=== PATIENT | female | born 1995 | race Caucasian/White ===

== ENCOUNTER → 2019-06-16 | Outpatient (CLI) | payer BC ==
--- NOTE | 2019-06-27 18:28 | P.PN ---
Progress Note - Text Progress Note Date: 06/27/19 This is a report on the seven-day event monitor starting from June 16. Baseline rhythm showed sinus with normal AK interval and QRS duration. Patient had episodes of sinus tachycardia with rates up to 180 episodes of sinus bradycardia with minimal rates of 57. Occasional APCs. Patient complained of being dizzy and racing of the heart, shortness of breath, chest pressure on several occasions. These symptoms did not correlate with any significant cardiac events. Final impression: #1. Baseline rhythm is sinus. #2. Episodes of sinus tachycardia and sinus bradycardia. #3. Several symptoms of dizziness, lightheadedness and racing chest tightness, not correlating with any cardiac e vents.
--- NOTE | 2019-06-30 13:53 | EM ---
This is a report on the seven-day event monitor starting from June 16. Baseline rhythm showed sinus with normal [place] interval and QRS duration. Patient had episodes of sinus tachycardia with rates up to 180 episodes of sinus bradycardia with minimal rates of 57. Occasional APCs. Patient complained of being dizzy and racing of the heart, shortness of breath, chest pressure on several occasions. These symptoms did not correlate with any significant cardiac events. Final impression: #1. Baseline rhythm is sinus. #2. Episodes of sinus tachycardia and sinus bradycardia. #3. Several symptoms of dizziness, lightheadedness and racing chest tightness, not correlating with any cardiac events. MTDD
== END | disposition home or self-care (01) ==
LOC: RADECHMAIN 11:59
PROVIDERS: ATTEND Family Medicine
DX: R00.0 Tachycardia, unspecified (principal); R00.1 Bradycardia, unspecified; R42 Dizziness and giddiness; R07.89 Other chest pain; F41.8 Other specified anxiety disorders
CPT/HCPCS: 93270

== ENCOUNTER 2019-07-22 10:31 | Day surgery (SDC) | payer BC ==
[2019-07-18 15:15] VITALS: BMI 21.2
[~2019-07-22 10:31] MED LIST: SODIUM CHLORIDE 0.9% 1,000 ML IV SCH
[2019-07-22 11:11] VITALS: RESP 16; TEMP 98.8
[2019-07-22 14:26] VITALS: BP 106/72; PULSE 65
--- NOTE | 2019-07-22 19:14 | P.PCN ---
Preoperative Diagnosis: Diagnosis recurrent presyncope Twelve-lead ECG shows sinus rhythm normal OR narrow QRS epsilon waves no ST segment abnormalities other than early repolarization abnormality of less than 1 mm no delta waves normal QT interval Tilt table test per protocol Baseline blood pressure 117/64 mmHg, Baseline heart rate 64 beats a minute Patient was tilted upright at an angle of 70 per protocol. Within 12 minutes her heart rate increased 222 beats a minute 4 by sudden drop in blood pressure. Lowest blood pressure recorded was 60/30 mmHg. She became pre-syncopal, briefly This reproduced her clinical symptoms Upon assuming supine position, heart rate and blood pressure normalized and symptoms improved Impression Normal twelve-lead ECG Neurocardiogenic syncope
== END 2019-07-22 13:15 | disposition home or self-care (01) ==
LOC: CATHEP 10:31
PROVIDERS: ATTEND Internal Medicine Clinical Cardiac Electrophysiology
DX: R55 Syncope and collapse (principal)
CPT/HCPCS: 93660

== ENCOUNTER → 2019-11-25 | Outpatient (CLI) | payer BC ==
--- NOTE | 2019-12-30 11:50 | EM ---
EVENT MONITOR INDICATION: Palpitations and orthostatic hypotension. I reviewed the provided event monitor strips. Patient was primarily in sinus rhythm with episodes of sinus tachycardia. The maximum heart rate was around 160 beats per minute. There were frequent PACs and a 4-beat run of atrial tachycardia noted. There were no pauses of more than 2 seconds. CONCLUSIONS: This event monitor shows sinus rhythm with sinus tachycardia and paroxysmal atrial tachycardia. MMODL / IJN: [id number] /
== END | disposition home or self-care (01) ==
LOC: RADECHMAIN 12:24
PROVIDERS: ATTEND Family Medicine
DX: I95.1 Orthostatic hypotension (principal); I47.1 Supraventricular tachycardia
CPT/HCPCS: 93270

== ENCOUNTER → 2020-04-08 | Outpatient (CLI) | payer BC ==
[2020-04-08 15:17] LABS: Basophils % (A) 0 %; Eosinophils % (A) 1 %; HGB 13.8 gm/dL (11.4-16.0); Lymphocytes # (A) 1.9 k/uL (1.0-4.8); Lymphocytes % (A) 44 %; MCH 29.4 pg (25.0-35.0); MCHC 32.2 g/dL (31.0-37.0); MCV 91.4 fL (80.0-100.0); Mean Platelet Volume 8.3; Monocytes # (A) 0.2 k/uL (0-1.0); Monocytes % (A) 4 %; Neutrophils # (A) 2.1 k/uL (1.3-7.7); Neutrophils % (A) 48 %; Platelet Count 237 k/uL (150-450); WBC 4.4 k/uL (3.8-10.6)
[2020-04-08 18:38] LABS: Anti-Smith Ab Interp NEGATIVE (NEGATIVE)
[2020-04-08 18:39] LABS: DNA Double-Stranded Indetermin (NEGATIVE); Scleroderma SC-70 Ab <0.2 AI
[2020-04-08 18:52] LABS: % Iron Saturation 30.52 (12.00-45.00); African American GFR (CKD) 105.2 (60.0-200.0); Albumin 4.7 g/dL (3.80-4.90); Albumin/Globulin Ratio 1.88 (1.60-3.17); Anion Gap 6.6 mmol/L (4.00-12.00); BUN/Creat Ratio 14.44 Ratio (12.00-20.00); Carbon Dioxide 24.4 mmol/L (21.6-31.8); Globulin 2.5 g/dL (1.6-3.3); Non-African American GFR(CKD) 90.8 (60.0-200.0); Potassium 4.1 mmol/L (3.5-5.5); Total Bilirubin 0.4 mg/dL (0.2-1.2); Total Protein 7.2 g/dL (6.2-8.2)
[2020-04-08 19:10] LABS: Folate, Serum 20.4 ng/mL
[2020-04-08 20:39] LABS: Hepatitis B Surface AB- Quant 3.5 mIU/mL; Hepatitis B Surface Antibody Non-Reactive (Non-Reactive); Hepatitis B Surface Antigen Non-Reactive (Non-Reactive); Hepatitis C IgG Antibody Non-Reactive (Non-Reactive)
== END | disposition home or self-care (01) ==
LOC: LABWHC1 14:13
PROVIDERS: ATTEND Social Worker Clinical
DX: R76.8 Other specified abnormal immunological findings in serum (principal)
CPT/HCPCS: 36415; 80053; 82306; 82607; 82746; 83540; 83550; 85025; 86160; 86225; 86235; 86704; 86706; 86803; 87340

== ENCOUNTER 2020-07-08 20:22 | Emergency (ER) | payer BC ==
[2020-07-08 20:27] VITALS: BP 94/63; PULSE 84; RESP 16; TEMP 97.7
[2020-07-08] MEDS ORDERED: ACETAMINOPHEN TAB 500 MG TAB PO STA (20:39)
[2020-07-08] MEDS ORDERED: LIDOCAINE 1% INJ 10MG/ML (20 ML MDV) SQ ONE (20:40)
--- NOTE | 2020-07-08 21:09 | ED ---
Skin/Abscess/FB HPI - General Chief complaint: Skin/Abscess/Foreign Body Stated complaint: R Hand Lac Time Seen by Provider: 07/08/20 20:32 Source: patient Mode of arrival: ambulatory Limitations: no limitations - History of Present Illness Initial comments: Patient is a 24-year-old female presenting to the emergency department with a chief complaint of laceration to the hand. Patient states this occurred about one hour prior to her level when she was carving a pumpkin and accidentally slipped her skin with the knife. Patient reports the laceration is between the first and second digits of the right hand. Patient reports that she is able to still fully move her thumb but does have a small region of numbness on the pad of the thumb. She reports her tetanus status is up-to-date. Reports there was some bleeding initially which has mostly resolved. States the pain is exacerbated with any pressure to the lacerated region. - Related Data Home Medications Medication Instructions Recorded Confirmed Birthcontol Pill 1 tab PO DAILY 10/17/14 10/17/14 Escitalopram [Lexapro] 20 mg PO DAILY 07/18/19 07/22/19 Allergies Allergy/AdvReac Type Severity Reaction Status Date / Time citalopram Allergy Rash/Hives Verified 07/08/20 20:28 codeine AdvReac Nausea & Verified 07/08/20 20:28 Vomiting Review of Systems ROS Statement: Those systems with pertinent positive or pertinent negative responses have been documented in the HPI. ROS Other: All systems not noted in ROS Statement are negative. Past Medical History Additional Past Medical History / Comment(s): see Dr Sam's H&P,multiple fractures due to competative cheer History of Any Multi-Drug Resistant Organisms: None Reported Past Surgical History: Adenoidectomy, Tonsillectomy Past Anesthesia/Blood Transfusion Reactions: No Reported Reaction Additional Past Anesthesia/Blood Transfusion Reaction / Comment(s): no hx blood transfusion Past Psychological History: Anxiety, PTSD Smoking Status: Never smoker Past Alcohol Use History: None Reported Past Drug Use History: Marijuana - Past Family History Mother Family Medical History: No Reported History General Exam Limitations: no limitations General appearance: alert, in no apparent distress Head exam: Present: atraumatic, normocephalic, normal inspection Eye exam: Present: normal appearance, PERRL, EOMI. Absent: scleral icterus, conjunctival injection, nystagmus Pupils: Present: normal accommodation ENT exam: Present: normal exam, normal oropharynx, mucous membranes moist, TM's normal bilaterally, normal external ear exam Neck exam: Present: normal inspection, full ROM. Absent: tenderness Respiratory exam: Present: normal lung sounds bilaterally. Absent: respiratory distress, wheezes, rales Cardiovascular Exam: Present: regular rate, normal rhythm, normal heart sounds Extremities exam: Present: full ROM (Full range of motion in the right thumb and second digit.), tenderness (Tenderness laceration site.), normal capillary refill (Normal capillary refill in all of the fingers of the right hand.), other (+2 ulnar and radial pulses bilaterally.). Absent: normal inspection (Laceration in the webbing between first and second digit of her right hand. Laceration is about 5 cm in length. Not able to visualize any muscles in the hand.), pedal edema, joint swelling, calf tenderness Back exam: Present: normal inspection, full ROM. Absent: tenderness, CVA tenderness (R), CVA tenderness (L) Neurological exam: Present: alert, oriented X3 Psychiatric exam: Present: normal affect, normal mood Skin exam: Present: warm, dry, intact, normal color Course Vital Signs 07/08/20 20:25 Temperature 97.7 F Pulse Rate 84 Respiratory 16 Rate Blood Pressure 94/63 O2 Sat by Pulse 100 Oximetry Procedures - Laceration Laceration #1 Consent Obtained: verbal consent Indication: laceration Site: hand Size (cm): 5 Description: linear, clean Depth: simple, single layer Sedation/Analgesia: none Anesthetic Used: lidocaine 1% Anesthesia Technique: local infiltration Amount (mls): 5 Pre-repair: irrigated extensively, deep structures intact Type of Sutures: nylon Size of Sutures: 4-0 Number of Sutures: 7 Technique: simple, interrupted Patient Tolerated Procedure: well, no complications Medical Decision Making - Medical Decision Making patient is a 24-year-old female presenting to emergency Department with a chief complaint of laceration. On physical examination, patient has a 5 cm laceration in the webbing between first and second digit of right hand. She did have some decreased sensation in a small region measuring approximately 1 cm on the finger pad of the thumb. She otherwise has normal capillary refill of the thumb and second digit. She also has full range of motion in those fingers as well. Laceration site was thoroughly irrigated and repaired with 7 sutures. Patient tolerated procedure well. Return parameters were discussed and she was advised to return in 10 days for suture removal. I also advised to follow-up with . Tetanus was up-to-date. Case discussed with physician. Disposition Clinical Impression: Laceration Disposition: HOME SELF-CARE Condition: Stable Instructions (If sedation given, give patient instructions): Care For Your Stitches (DC), Laceration (DC) Additional Instructions: Follow-up with Please return to the emergency room in 8-10 days to have sutures removed. Please watch for any signs of infection which may include increased pain, swelling, redness, fever or chills. Please return to emergency room for any signs of infection do occur. Please use clean soap and water over the area to prevent scabbing over your stitches. Please leave wound covered for the first 24-48 hours and then leave wound open to air. Please return to the emergency room for any other concerns. Is patient prescribed a controlled substance at d/c from ED?: No Referrals: Annette Dale III, MD [Primary Care Provider] - 1-2 days Torsten Person DO [Doctor of Osteopathic Medicine] - 1-2 days Time of Disposition: 21:09
[2020-07-08] MEDS ORDERED: NEOMYCIN-BACITRACIN-POLY OINT 14 GM TUBE TOPICAL ONE (21:15)
== END 2020-07-08 21:23 | disposition home or self-care (01) ==
LOC: EC 20:22
DX: S61.411A Laceration without foreign body of right hand, initial encounter (principal); Z88.5 Allergy status to narcotic agent; Z88.8 Allergy status to other drugs, medicaments and biological substances; W26.0XXA Contact with knife, initial encounter
CPT/HCPCS: 99282; 12002; J2001

== ENCOUNTER 2020-08-19 05:33 | Emergency (ER) | payer BC ==
[2020-08-19 05:40] VITALS: RESP 18; TEMP 98.9
[2020-08-19 06:02] LABS: Appearance,Urine Cloudy (Clear); Bacteria,Urine Rare /hpf; Bilirubin,Urine Negative (Negative); Blood,Urine Small (Negative); Budding Yeast,Urine Occasional /hpf; Color,Urine Yellow; Glucose,Urine (UA) Negative (Negative); Ketones,Urine Negative (Negative); Leukocyte Esterase,Urine Large (Negative); Mucus,Urine Many /hpf; Nitrite,Urine Negative (Negative); Protein,Urine 1+ (Negative); RBC,Urine 35 /hpf (0-5); Squamous Epithelial Cell,Urine 2 /hpf (0-4); Urobilinogen,Urine <2.0 mg/dL (<2.0); WBC,Urine 129 /hpf (0-5)
[2020-08-19] MEDS ORDERED: KETOROLAC 15 MG/ML 1 ML VIAL IVP STA (06:19)
--- NOTE | 2020-08-19 06:19 | ED ---
Female Urogenital HPI - General Chief complaint: Urogenital Stated complaint: Back Pain Time Seen by Provider: 08/19/20 06:03 Source: patient Mode of arrival: ambulatory - History of Present Illness Initial comments: 25yo female presenting for low back pain. Patient states that she has had back pain and some lower midline tenderness for the past 2-3 days. On first day she states she had some right sided pain, that went away--two hours ago the patient states that experiences sharp left sided pain. Pt was concerned of kidney stone or bladder infection and presented to the ER. Pt denies . Denies immunocompromise, no chronic steroids/immune modulators. Patient denies fevers, chills or general malaise. Pt denies additional complaints. Upon arrival she is pleasant and nontoxic in appearance. - Related Data Home Medications Medication Instructions Recorded Confirmed Escitalopram [Lexapro] 20 mg PO DAILY 07/18/19 08/19/20 ALPRAZolam [Xanax] 0.25 mg PO DAILY PRN 08/19/20 08/19/20 Butalb/APAP/Caff 50-325-40Mg 1 tab PO Q4H PRN 08/19/20 08/19/20 [Fioricet 50-325-40] Kariva 1 tab PO DAILY 08/19/20 08/19/20 Ondansetron Odt [Zofran Odt] 4 mg PO Q4H PRN 08/19/20 08/19/20 Previous Rx's Medication Instructions Recorded Cephalexin [Keflex] 500 mg PO Q6HR 5 Days #20 cap 08/19/20 Allergies Allergy/AdvReac Type Severity Reaction Status Date / Time citalopram Allergy Rash/Hives Verified 08/19/20 07:01 codeine AdvReac Nausea & Verified 08/19/20 07:01 Vomiting Review of Systems ROS Statement: Those systems with pertinent positive or pertinent negative responses have been documented in the HPI. ROS Other: All systems not noted in ROS Statement are negative. Past Medical History Additional Past Medical History / Comment(s): see Dr Sam's H&P,multiple fractures due to competative cheer History of Any Multi-Drug Resistant Organisms: None Reported Past Surgical History: Adenoidectomy, Tonsillectomy Past Anesthesia/Blood Transfusion Reactions: No Reported Reaction Additional Past Anesthesia/Blood Transfusion Reaction / Comment(s): no hx blood transfusion Past Psychological History: Anxiety, PTSD Smoking Status: Never smoker Past Alcohol Use History: None Reported Past Drug Use History: Marijuana - Past Family History Mother Family Medical History: No Reported History General Exam - General Exam Comments Initial Comments: General: The patient is awake and alert, in no distress Eye: +3 mm pupils are equal, round and reactive to light, extra-ocular movements are intact. No nystagmus. There is normal conjunctiva bilaterally. No signs of icterus. Ears, nose, mouth and throat: There are moist mucous membranes and no oral lesions. Gastrointestinal: Soft, non-distended, non-tender abdomen without masses or organomegaly noted. There is no rebound or guarding present. Musculoskeletal: Normal ROM, no tenderness. Strength 5/5. Sensation intact. Radial pulses equal bilaterally 2+. Neurological: A&O x 3. CN II-XII intact grossly, There are no obvious motor or sensory deficits. Coordination appears grossly intact. Speech is normal. Skin: Skin is warm and dry and no rashes or lesions are noted. Psychiatric: Cooperative, appropriate mood & affect, normal judgment. Course Vital Signs 08/19/20 08/19/20 05:34 07:54 Temperature 98.9 F Pulse Rate 72 67 Respiratory 18 18 Rate Blood Pressure 140/91 134/86 O2 Sat by Pulse 99 100 Oximetry Medical Decision Making - Medical Decision Making labs stable. afebrile. suprapubic tenderness. low back pain b/l. changes sides. CT (-) stone. urine consistent with infection. culture pending. pt given rocephin. initiated on oral antibiotics. is to f/u with pcp adn return for worsenign symptoms. dr. hatfield agreeable to care plan and discharge. - Lab Data Result diagrams: 08/19/20 07:30 08/19/20 07:30 Lab Results 08/19/20 08/19/20 08/19/20 Range/Units 05:39 05:41 07:30 WBC 6.4 (3.8-10.6) k/uL RBC 3.88 (3.80-5.40) m/uL Hgb 12.1 (11.4-16.0) gm/dL Hct 35.4 (34.0-46.0) % MCV 91.1 (80.0-100.0) fL MCH 31.2 (25.0-35.0) pg MCHC 34.2 (31.0-37.0) g/dL RDW 11.9 (11.5-15.5) % Plt Count 189 (150-450) k/uL MPV 8.0 Neutrophils % 54 % Lymphocytes % 34 % Monocytes % 7 % Eosinophils % 1 % Basophils % 1 % Neutrophils # 3.5 (1.3-7.7) k/uL Lymphocytes # 2.2 (1.0-4.8) k/uL Monocytes # 0.5 (0-1.0) k/uL Eosinophils # 0.1 (0-0.7) k/uL Basophils # 0.0 (0-0.2) k/uL Sodium (137-145) mmol/L Potassium (3.5-5.1) mmol/L Chloride (98-107) mmol/L Carbon Dioxide (22-30) mmol/L Anion Gap mmol/L BUN (7-17) mg/dL Creatinine (0.52-1.04) mg/dL Est GFR (CKD-EPI)AfAm (>60 ml/min/1.73 sqM) Est GFR (CKD-EPI)NonAf (>60 ml/min/1.73 sqM) Glucose (74-99) mg/dL Plasma Lactic Acid Ras (0.7-2.0) mmol/L Calcium (8.4-10.2) mg/dL Total Bilirubin (0.2-1.3) mg/dL AST (14-36) U/L ALT (4-34) U/L Alkaline Phosphatase (38-126) U/L Total Protein (6.3-8.2) g/dL Albumin (3.5-5.0) g/dL Urine Color Yellow Urine Appearance Cloudy H (Clear) Urine pH 6.0 (5.0-8.0) Ur Specific [place] 1.020 (1.001-1.035) Urine Protein 1+ H (Negative) Urine Glucose (UA) Negative (Negative) Urine Ketones Negative (Negative) Urine Blood Small H (Negative) Urine Nitrite Negative (Negative) Urine Bilirubin Negative (Negative) Urine Urobilinogen <2.0 (<2.0) mg/dL Ur Leukocyte Esterase Large H (Negative) Urine RBC 35 H (0-5) /hpf Urine WBC 129 H (0-5) /hpf Ur Squamous Epith Cells 2 (0-4) /hpf Urine Bacteria Rare H (None) /hpf Urine Mucus Many H (None) /hpf Urine Yeast (Budding) Occasional H (None) /hpf Urine HCG, Qual Not Detected (Not Detectd) 08/19/20 08/19/20 Range/Units 07:30 07:30 WBC (3.8-10.6) k/uL RBC (3.80-5.40) m/uL Hgb (11.4-16.0) gm/dL Hct (34.0-46.0) % MCV (80.0-100.0) fL MCH (25.0-35.0) pg MCHC (31.0-37.0) g/dL RDW (11.5-15.5) % Plt Count (150-450) k/uL MPV Neutrophils % % Lymphocytes % % Monocytes % % Eosinophils % % Basophils % % Neutrophils # (1.3-7.7) k/uL Lymphocytes # (1.0-4.8) k/uL Monocytes # (0-1.0) k/uL Eosinophils # (0-0.7) k/uL Basophils # (0-0.2) k/uL Sodium 139 (137-145) mmol/L Potassium 3.7 (3.5-5.1) mmol/L Chloride 111 H (98-107) mmol/L Carbon Dioxide 24 (22-30) mmol/L Anion Gap 4 mmol/L BUN 15 (7-17) mg/dL Creatinine 0.81 (0.52-1.04) mg/dL Est GFR (CKD-EPI)AfAm >90 (>60 ml/min/1.73 sqM) Est GFR (CKD-EPI)NonAf >90 (>60 ml/min/1.73 sqM) Glucose 97 (74-99) mg/dL Plasma Lactic Acid Ras 0.6 L (0.7-2.0) mmol/L Calcium 9.0 (8.4-10.2) mg/dL Total Bilirubin 0.3 (0.2-1.3) mg/dL AST 18 (14-36) U/L ALT 15 (4-34) U/L Alkaline Phosphatase 54 (38-126) U/L Total Protein 6.5 (6.3-8.2) g/dL Albumin 3.7 (3.5-5.0) g/dL Urine Color Urine Appearance (Clear) Urine pH (5.0-8.0) Ur Specific [place] (1.001-1.035) Urine Protein (Negative) Urine Glucose (UA) (Negative) Urine Ketones (Negative) Urine Blood (Negative) Urine Nitrite (Negative) Urine Bilirubin (Negative) Urine Urobilinogen (<2.0) mg/dL Ur Leukocyte Esterase (Negative) Urine RBC (0-5) /hpf Urine WBC (0-5) /hpf Ur Squamous Epith Cells (0-4) /hpf Urine Bacteria (None) /hpf Urine Mucus (None) /hpf Urine Yeast (Budding) (None) /hpf Urine HCG, Qual (Not Detectd) Disposition Clinical Impression: UTI (urinary tract infection) Disposition: HOME SELF-CARE Condition: Good Instructions (If sedation given, give patient instructions): Urinary Tract Infection in Women (ED) Additional Instructions: Please use medication as discussed. Please follow-up with family doctor in the next 2 days. Please return to emergency room if the symptoms increase or worsen or for any other concerns. Prescriptions: Cephalexin [Keflex] 500 mg PO Q6HR 5 Days #20 cap Is patient prescribed a controlled substance at d/c from ED?: No Referrals: Annette Dale III, MD [Primary Care Provider] - 1-2 days Time of Disposition: 07:52
[2020-08-19] MEDS ORDERED: cefTRIAXone IN SWFI 1,000 MG/10 ML SYRINGE IVP STA (06:20)
[2020-08-19 07:41] LABS: Basophils % (A) 1 %; Eosinophils # (A) 0.1 k/uL (0-0.7); Eosinophils % (A) 1 %; HCT 35.4 % (34.0-46.0); HGB 12.1 gm/dL (11.4-16.0); Lymphocytes # (A) 2.2 k/uL (1.0-4.8); Lymphocytes % (A) 34 %; MCH 31.2 pg (25.0-35.0); MCHC 34.2 g/dL (31.0-37.0); MCV 91.1 fL (80.0-100.0); Monocytes # (A) 0.5 k/uL (0-1.0); Monocytes % (A) 7 %; Neutrophils # (A) 3.5 k/uL (1.3-7.7); Neutrophils % (A) 54 %; Platelet Count 189 k/uL (150-450); RBC 3.88 m/uL (3.80-5.40); RDW 11.9 % (11.5-15.5); WBC 6.4 k/uL (3.8-10.6)
--- NOTE | 2020-08-19 07:48 | CT ---
EXAMINATION TYPE: CT abdomen pelvis wo con DATE OF EXAM: 08/19/2020 HISTORY: Right sided flank pain CT DLP: 371.8 mGycm. Automated Exposure Control for Dose Reduction was Utilized. TECHNIQUE: CT scan of the abdomen and pelvis is performed without oral or IV contrast. COMPARISON: NONE FINDINGS: Within the limitations of a non-contrast study, the following observations are made. LUNG BASES: No significant abnormality is appreciated. LIVER/GB: Gallbladder is contracted in appearance. PANCREAS: No significant abnormality is seen. SPLEEN: No significant abnormality is seen. ADRENALS: No significant abnormality is seen. KIDNEYS: No renal stones or hydronephrosis is present bilaterally. BOWEL: Suboptimal evaluation without enteric contrast and patient having little intra-abdominal fat. No suspicious small or large bowel dilatation is appreciated. Slightly low-lying cecum with normal ap pearing appendix medially from it noted. GENITAL ORGANS: Anteverted uterus. Occasional scattered pelvic phleboliths. LYMPH NODES: No greater than 1cm abdominal or pelvic lymph nodes are appreciated. OSSEOUS STRUCTURES: Insertional-type vertebra at lumbosacral junction. Slight dextroconvex scoliotic curvature on coronal images. OTHER: No significant additional abnormality is seen. IMPRESSION: No renal stones or hydronephrosis is seen bilaterally. No acute findings identified on no ncontrast CT
[2020-08-19 07:49] LABS: ALT 15 U/L (4-34); AST 18 U/L (14-36); African American GFR (CKD) >90 (>60 ml/min/1.73 sqM); Albumin 3.7 g/dL (3.5-5.0); Alkaline Phosphatase 54 U/L (38-126); Anion Gap 4 mmol/L; Blood Urea Nitrogen 15 mg/dL (7-17); Carbon Dioxide 24 mmol/L (22-30); Chloride 111 mmol/L (98-107); Glucose 97 mg/dL (74-99); Non-African American GFR(CKD) >90 (>60 ml/min/1.73 sqM); Potassium 3.7 mmol/L (3.5-5.1); Sodium 139 mmol/L (137-145); Total Bilirubin 0.3 mg/dL (0.2-1.3); Total Protein 6.5 g/dL (6.3-8.2)
[2020-08-19 07:54] VITALS: BP 134/86; PULSE 67
== END 2020-08-19 07:57 | disposition home or self-care (01) ==
LOC: EC 05:33
DX: N39.0 Urinary tract infection, site not specified (principal); F41.9 Anxiety disorder, unspecified; F43.10 Post-traumatic stress disorder, unspecified; Z79.899 Other long term (current) drug therapy; Z88.5 Allergy status to narcotic agent; Z88.8 Allergy status to other drugs, medicaments and biological substances
CPT/HCPCS: 36415; 74176; 80053; 81001; 81025; 83605; 85025; 87086; 96374; 96375; 99284

== ENCOUNTER 2021-02-19 | Emergency (ER) | payer OTHER, BC ==
[2021-02-19 00:12] VITALS: BP 126/88; PULSE 71; RESP 16; TEMP 97.9
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
== END 2021-02-19 01:05 | disposition home or self-care (01) ==
LOC: EC
DX: Z02.83 Encounter for blood-alcohol and blood-drug test (principal); V86.01XA Driver of ambulance or fire engine injured in traffic accident, initial encounter
CPT/HCPCS: 99283

== ENCOUNTER 2022-09-29 09:15 | Emergency (ER) | payer BC ==
[2022-09-29 09:21] VITALS: TEMP 98.2
[2022-09-29] MEDS ORDERED: SODIUM CHLORIDE 0.9% 1,000 ML IV STA (09:26)
[2022-09-29] MEDS ORDERED: FAMOTIDINE 20 MG/2 ML VIAL IV STA (09:26)
[2022-09-29] MEDS ORDERED: ONDANSETRON 4 MG/2 ML VIAL IVP STA (09:26)
--- NOTE | 2022-09-29 09:29 | ED ---
General Adult HPI - General Chief complaint: Nausea/Vomiting/Diarrhea Stated complaint: Nausea, vomiting Time Seen by Provider: 09/29/22 09:23 Source: patient, family, RN notes reviewed Mode of arrival: ambulatory Limitations: no limitations - History of Present Illness Initial comments: Patient is a pleasant 27-year-old female presenting to the emergency department with concerns for nausea vomiting. Onset of symptoms was just 2 hours ago. Patient has vomited several times and still feels nauseated. Patient is vomiting now. Patient denies possible . Patient has had some minimal loose stools. No abdominal pain. No fever. No history of chronic similar symptoms previously. Patient did try oral Zofran without improvement. - Related Data Home Medications Medication Instructions Recorded Confirmed Escitalopram [Lexapro] 20 mg PO DAILY 07/18/19 08/19/20 ALPRAZolam [Xanax] 0.25 mg PO DAILY PRN 08/19/20 08/19/20 Butalb/APAP/Caff 50-325-40Mg 1 tab PO Q4H PRN 08/19/20 08/19/20 [Fioricet 50-325-40] Kariva 1 tab PO DAILY 08/19/20 08/19/20 Ondansetron Odt [Zofran Odt] 4 mg PO Q4H PRN 08/19/20 08/19/20 Previous Rx's Medication Instructions Recorded cephALEXin [Keflex] 500 mg PO Q6HR 5 Days #20 cap 08/19/20 Metoclopramide HCl [Reglan] 10 mg PO Q6HR PRN #15 tablet 09/29/22 Allergies Allergy/AdvReac Type Severity Reaction Status Date / Time citalopram Allergy Rash/Hives Verified 02/19/21 00:10 sulfamethoxazole Allergy Nausea & Verified 09/29/22 09:21 [From Bactrim] Vomiting trimethoprim [From Bactrim] Allergy Nausea & Verified 09/29/22 09:21 Vomiting codeine AdvReac Nausea & Verified 02/19/21 00:10 Vomiting Review of Systems ROS Statement: Those systems with pertinent positive or pertinent negative responses have been documented in the HPI. ROS Other: All systems not noted in ROS Statement are negative. Constitutional: Denies: fever Eyes: Denies: eye pain ENT: Denies: ear pain Respiratory: Denies: cough Cardiovascular: Denies: chest pain Endocrine: Denies: fatigue Gastrointestinal: Reports: as per HPI, nausea, vomiting, diarrhea. Denies: abdominal pain, constipation Genitourinary: Denies: dysuria Musculoskeletal: Denies: back pain Skin: Denies: lesions Neurological: Denies: weakness Past Medical History Additional Past Medical History / Comment(s): see Dr Sam's H&P,multiple fra ctures due to competative cheer History of Any Multi-Drug Resistant Organisms: None Reported Past Surgical History: Adenoidectomy, Tonsillectomy Past Anesthesia/Blood Transfusion Reactions: No Reported Reaction Additional Past Anesthesia/Blood Transfusion Reaction / Comment(s): no hx blood transfusion Past Psychological History: Anxiety, PTSD Smoking Status: Never smoker Past Alcohol Use History: Occasional Past Drug Use History: Marijuana - Past Family History Mother Family Medical History: No Reported History General Exam Limitations: no limitations General appearance: alert, in no apparent distress Head exam: Present: normocephalic Eye exam: Present: normal appearance Neck exam: Present: normal inspection Respiratory exam: Present: normal lung sounds bilaterally Cardiovascular Exam: Present: regular rate, normal rhythm GI/Abdominal exam: Present: soft. Absent: distended, tenderness, guarding, rebound, rigid, pulsatile mass Extremities exam: Present: normal inspection Neurological exam: Present: alert Psychiatric exam: Present: normal affect, normal mood Skin exam: Present: normal color Course Vital Signs 09/29/22 09/29/22 09/29/22 09:18 10:33 11:09 Temperature 98.2 F Pulse Rate 94 98 98 Respiratory 22 18 20 Rate Blood Pressure 115/74 O2 Sat by Pulse 96 99 99 Oximetry Medical Decision Making - Medical Decision Making Was pt. sent in by a medical professional or institution (, PA, [employer], urgent care, hospital, or custodial...) When possible be specific @ -No Did you speak to anyone other than the patient for history (EMS, parent, family, police, friend...)? What history was obtained from this source @ -Family is present and helps provide history regarding onset of symptoms Did you review nursing and triage notes (agree or disagree)? Why? @ -I reviewed and agree with nursing and triage notes Were old charts reviewed (outside hosp., previous admission, EMS record, old EKG, old radiological studies, urgent care reports/EKG's, custodial records)? Report findings @ -No old charts were reviewed Differential Diagnosis (chest pain, altered mental status, abdominal pain women, abdominal pain men, vaginal bleeding, weakness, fever, dyspnea, syncope, headache, dizziness, GI bleed, back pain, seizure, CVA, palpatations, mental health)? @ -Differential Abdominal Pain Women: Appendicitis, Cholecystitis, diverticulosis, ischemic bowel, pancreatitis, hepatitis, UTI, gastroenteritis, AAA, incarcerated hernia, bowel obstruction, constipation, inflammatory bowel, hepatitis, peptic ulcer disease, splenic infarction, perforated viscus, vulvitis, ovarian torsion, PID, kidney stone, placenta abruption, this is not meant to be an all-inclusive list EKG interpreted by me (3pts min.). @ - X-rays interpreted by me (1pt min.). @ -None done CT interpreted by me (1pt min.). @ -None done U/S interpreted by me (1pt. min.). @ -None done What testing was considered but not performed or refused? (CT, X-rays, U/S, labs)? Why? @ -None What meds were considered but not given or refused? Why? @ -Considered further nausea medication however patient feels better Did you discuss the management of the patient with other professionals (pr ofessionals i.e. , PA, [employer], lab, RT, psych nurse, social work job titles, analytics associate, teacher, surveillance officer, rn case management)? Give summary @ -No Was smoking cessation discussed for >3mins.? @ -No Was critical care preformed (if so, how long)? @ -No Were there social determinants of health that impacted care today? How? (Homelessness, low income, unemployed, alcoholism, drug addiction, transport ation, low edu. Level, literacy, decrease access to med. care, [facility], rehab)? @ -No Was there de-escalation of care discussed even if they declined (Discuss DNR or withdrawal of care, Hospice)? DNR status @ -No What co-morbidities impacted this encounter? (DM, HTN, Smoking, COPD, CAD, Cancer, CVA, ARF, Chemo, Hep., AIDS, mental health diagnosis, sleep apnea, morbid obesity)? @ -None Was patient admitted / discharged? Hospital course, mention meds given and route, prescriptions, significant lab abnormalities, going to OR and other pertinent info. @ -Patient reevaluated twice. First time was still nauseated. Second time is feeling much better and is comfortable with discharge home. Patient and family updated on results and need for follow-up as well as prescription being sent to pharmacy Undiagnosed new problem with uncertain prognosis? @ - Drug Therapy requiring intensive monitoring for toxicity (Heparin, Nitro, Insulin, Cardizem)? @ -No Were any procedures done? @ -No Diagnosis/symptom? @ -Acute vomiting Acute, or Chronic, or Acute on Chronic? @ -Acute Uncomplicated (without systemic symptoms) or Complicated (systemic symptoms)? @ -Uncomplicated Side effects of treatment? @ -No Exacerbation, Progression, or Severe Exacerbation? @ -No Poses a threat to life or bodily function? How? (Chest pain, [place], [place], pneumonia, PE, COPD, DKA, ARF, appy, cholecystitis, CVA, Diverticulitis, Homicidal, Suicidal, threat to staff... and all critical care pts) @ -No - Lab Data Result diagrams: 09/29/22 09:36 09/29/22 09:36 Lab Results 09/29/22 09/29/22 Range/Units 09:36 09:36 WBC 13.9 H (3.8-10.6) k/uL RBC 5.05 (3.80-5.40) m/uL Hgb 15.0 (11.4-16.0) gm/dL Hct 45.6 (34.0-46.0) % MCV 90.1 (80.0-100.0) fL MCH 29.7 (25.0-35.0) pg MCHC 33.0 (31.0-37.0) g/dL RDW 12.4 (11.5-15.5) % Plt Count 281 (150-450) k/uL MPV 7.9 Neutrophils % 82 % Lymphocytes % 12 % Monocytes % 4 % Eosinophils % 1 % Basophils % 0 % Neutrophils # 11.4 H (1.3-7.7) k/uL Lymphocytes # 1.7 (1.0-4.8) k/uL Monocytes # 0.5 (0-1.0) k/uL Eosinophils # 0.1 (0-0.7) k/uL Basophils # 0.0 (0-0.2) k/uL Sodium 144 (137-145) mmol/L Potassium 4.1 (3.5-5.1) mmol/L Chloride 108 H (98-107) mmol/L Carbon Dioxide 22 (22-30) mmol/L Anion Gap 14 mmol/L BUN 18 H (7-17) mg/dL Creatinine 0.93 (0.52-1.04) mg/dL Est GFR (CKD-EPI)AfAm >90 (>60 ml/min/1.73 sqM) Est GFR (CKD-EPI)NonAf 86 (>60 ml/min/1.73 sqM) Glucose 148 H (74-99) mg/dL Calcium 10.3 H (8.4-10.2) mg/dL Total Bilirubin 0.7 (0.2-1.3) mg/dL AST 28 (14-36) U/L ALT 29 (4-34) U/L Alkaline Phosphatase 67 (38-126) U/L Total Protein 8.9 H (6.3-8.2) g/dL Albumin 5.4 H (3.5-5.0) g/dL Amylase 80 (30-110) U/L Lipase 82 (23-300) U/L HCG, Quant <2.4 mIU/mL Disposition Clinical Impression: Vomiting Disposition: HOME SELF-CARE Condition: Stable Instructions (If sedation given, give patient instructions): Acute Nausea and Vomiting (ED) Additional Instructions: Please do follow-up with primary care physician in the next couple days for r echeck. You will need to have your labs rechecked in the next week or 2. Return for pain, fever, uncontrolled vomiting, worsening or changing symptoms or other concerns. Prescription and sent to pharmacy. Prescriptions: Metoclopramide HCl [Reglan] 10 mg PO Q6HR PRN #15 tablet PRN Reason: Nausea Is patient prescribed a controlled substance at d/c from ED?: No Referrals: Annette Dale III, MD [Primary Care Provider] - 1-2 days Time of Disposition: 11:27
[2022-09-29 09:49] LABS: Basophils % (A) 0 %; Eosinophils # (A) 0.1 k/uL (0-0.7); Eosinophils % (A) 1 %; HCT 45.6 % (34.0-46.0); Lymphocytes # (A) 1.7 k/uL (1.0-4.8); Lymphocytes % (A) 12 %; MCH 29.7 pg (25.0-35.0); MCV 90.1 fL (80.0-100.0); Mean Platelet Volume 7.9; Monocytes # (A) 0.5 k/uL (0-1.0); Monocytes % (A) 4 %; Neutrophils # (A) 11.4 k/uL (1.3-7.7); Neutrophils % (A) 82 %; Platelet Count 281 k/uL (150-450); RBC 5.05 m/uL (3.80-5.40); RDW 12.4 % (11.5-15.5); WBC 13.9 k/uL (3.8-10.6)
[2022-09-29 10:02] LABS: ALT 29 U/L (4-34); AST 28 U/L (14-36); African American GFR (CKD) >90 (>60 ml/min/1.73 sqM); Albumin 5.4 g/dL (3.5-5.0); Alkaline Phosphatase 67 U/L (38-126); Amylase 80 U/L (30-110); Anion Gap 14 mmol/L; Blood Urea Nitrogen 18 mg/dL (7-17); Calcium 10.3 mg/dL (8.4-10.2); Carbon Dioxide 22 mmol/L (22-30); Chloride 108 mmol/L (98-107); Glucose 148 mg/dL (74-99); Lipase 82 U/L (23-300); Non-African American GFR(CKD) 86 (>60 ml/min/1.73 sqM); Potassium 4.1 mmol/L (3.5-5.1); Sodium 144 mmol/L (137-145); Total Bilirubin 0.7 mg/dL (0.2-1.3); Total Protein 8.9 g/dL (6.3-8.2)
[2022-09-29 10:16] LABS: HCG,Quantitative Serum <2.4 mIU/mL
[2022-09-29] MEDS ORDERED: METOCLOPRAMIDE 5 MG/ML 2 ML VIAL IVP STA (10:24)
[2022-09-29 11:34] VITALS: BP 122/84; PULSE 99; RESP 18
== END 2022-09-29 11:34 | disposition home or self-care (01) ==
LOC: EC 09:15
DX: R11.2 Nausea with vomiting, unspecified (principal); F41.9 Anxiety disorder, unspecified; F12.90 Cannabis use, unspecified, uncomplicated; Z88.1 Allergy status to other antibiotic agents; Z88.2 Allergy status to sulfonamides; Z88.5 Allergy status to narcotic agent
CPT/HCPCS: 36415; 80053; 82150; 83690; 85025; 84702; 99284; 96374; 96375 ×2; 96361; J2765; J2405